=== PATIENT | male | born 1935 | race Caucasian/White ===

== ENCOUNTER 2017-10-27 10:49 | Observation (INO) ==
[2017-10-27 11:28] LABS: Basophils % 0.6 %; Eosinophils # 0.1 K/mcL (0.0-0.6); Eosinophils % 2.5 %; Hematocrit 44.5 % (37.5-50.1); Hemoglobin 14.8 g/dL (12.9-16.9); Immature Granulocytes % 0.2 % (0-4); Lymphocytes # 1.2 K/mcL (0.6-4.6); Lymphocytes % 25.6 %; Mean Corpuscular HGB Conc 33.3 g/dL (31.6-35.5); Mean Corpuscular Hemoglobin 30.9 pg (28.0-33.3); Mean Corpuscular Volume 92.9 fL (83.0-100.0); Mean Platelet Volume 10.1 fL (9.4-12.4); Monocytes # 0.4 K/mcL (0.0-1.3); Monocytes % 7.7 %; Neutrophils # 3.1 K/mcL (1.6-8.9); Platelet Count 134 K/mcL (140-400); Red Blood Count 4.79 M/mcL (4.19-5.50); Red Cell Distribution Width 13.6 % (11.5-14.5); Segmented Neutrophils % 63.4 %
--- NOTE | 2017-10-27 11:35 | Emergency Department Note ---
Disposition Clinical Impression: Chest pain Disposition: Admitted As Inpatient Condition: Fair Time of Disposition: 13:17 Chest Pain HPI - General Chief Complaint: ED Chest Pain Stated Complaint: chest pain Time Seen by Provider: 10/27/17 10:56 Source: patient, EMS Limitations: language barrier Vital Signs Reviewed: Yes Nursing Notes Reviewed: Yes - History of Present Illness HPI Narrative: History of CABG in 2010 presents with chest pain which is a pressure feeling and began while he was eating breakfast this morning at home between 845 and 9: 00 and the symptoms are constant but significantly improved and only about 10% of the discomfort that he had initially. Did have diaphoresis and nausea no vomiting. Did radiate to the upper arms but that only lasted for about 5 minutes. No pleuritic aspect. No pain or swelling of the lower extremities. Last cardiac catheterization was in 2010. 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 Social history: No smoking or alcohol. Is here with his . Family history: Positive for heart disease Severity scale (1-10): 0 - Related Data Home Medications Medication Instructions Recorded Confirmed Aspirin [Lo-Dose Aspirin EC] 81 mg PO DAILY 10/27/17 10/27/17 Atorvastatin [Lipitor] 10 mg PO DAILY 10/27/17 10/27/17 Fish Oil/Dha/Epa [Fish Oil 1,200 1 cap PO DAILY 10/27/17 10/27/17 mg Fish Oil] Losartan [Cozaar] 25 mg PO HS 10/27/17 10/27/17 Multivitamin [One Daily Essential] 1 tab PO DAILY 10/27/17 10/27/17 Nitroglycerin [Nitroglycerin] 0.4 mg SL Q5M PRN 10/27/17 10/27/17 Tamsulosin [Flomax] 0.4 mg PO DAILY 10/27/17 10/27/17 Allergies Allergy/AdvReac Type Severity Reaction Status Date / Time No Known Allergies Allergy Verified 10/27/17 12:40 Review of Systems: Constitutional: No fever Vision: No blurred vision ENT: No new rhinorrhea Respiratory: No cough Allergic: No allergies : No blood in urine GI: No blood in stool Hematologic: No bruising Dermatologic: No skin rash Musculoskeletal: No pain in the extremities Neuro: No numbness of the extremities Chest Pain PMH - Past Medical History Medical history: Reports: coronary artery disease, hyperlipidemia, hypertension , other Psychiatric history: Reports: no psych history - Social History Smoking Status: Never smoker Alcohol use: Reports: none Drug use: Reports: none Physical Exam CONSTITUTIONAL: Well-appearing; well-nourished; A&O X 3, in no apparent distress HEAD: Normocephalic; atraumatic EYES: PERRL, no scleral icterus NOSE: The nose is normal in appearance without rhinorrhea NECK: No JVD or distended neck veins RESP: Normal chest excursion with respiration; breath sounds clear and equal bilaterally; no wheezes, rhonchi, or rales CARD: Regular rhythm, without murmurs, rub or gallop ABD: Non-distended; non-tender, soft, without rigidity, rebound or guarding,no pulsatile mass CHEST: No pain with palpation, does have a well-healed midline sternotomy scar SKIN: Normal for age and race; warm and dry without diaphoresis ; no apparent lesions EXTREMITIES: Pulses are 2 plus and equal times 4 extremities, no peripheral edema or calf muscle pain - General Limitations: language barrier General appearance: alert, in no apparent distress Course Vital Signs Temperature 97.5 F L 10/27/17 10:54 Pulse Rate 74 10/27/17 10:54 Respiratory Rate 18 10/27/17 10:54 Blood Pressure 110/68 10/27/17 10:54 O2 Sat by Pulse Oximetry 99 10/27/17 10:54 Temperature 98.2 F 10/27/17 13:23 Pulse Rate 65 10/27/17 11:50 Respiratory Rate 18 10/27/17 13:23 Blood Pressure 104/68 10/27/17 13:23 O2 Sat by Pulse Oximetry 99 10/27/17 11:50 Oxygen Delivery Oxygen Delivery Room Air Chest Pain - MDM Narrative Medical decision making narrative: Patient did not get up from the table so does not know if this is worse with exertion and I did review his EKGs and the first one was done at 10:58 AM showing normal sinus rhythm with a rate of 69 which does have isolated T-wave inversion in lead aVL and this is new compared to previous EKG from 2013. I did repeat the EKG at 11:26 AM which showed continued aVL T-wave inversion and is also normal sinus rhythm both out ST changes/significant ST changes. The patient does have Q waves on both of these EKGs inferiorly. The patient does have a cardiac workup in progress. He did take aspirin this morning 81 mg. Patient will receive 1 inch of nitroglycerin paste and be watched closely and likely admitted to the hospital. Chest x-ray is also pending. 1137 I did review the patient's test results including a negative troponin. Patient 's symptoms are concerning and for that reason will be admitted to the hospital. This was discussed with the hospitalist Dr. Barragan who except the patient for admission. He is pain-free now. 1316 I did speak with Dr. Dennis Miranda in [place] who recommends the patient stay here and if this test comes back negative then he will be happy to see the patient in the office either this coming week or possibly the week after. I will recommend the patient that he call the office today or tomorrow to make an appointment. The patient will be admitted. He is pain-free at the present time. The patient is comfortable with this approach. 1341 - Medical Records Medical records reviewed: Yes I reviewed the patient's medical records. - Lab Data Lab results reviewed: Yes I reviewed the patient's lab results. Result diagrams: 10/27/17 11:18 10/27/17 12:03 Lab Results 10/27/17 10/27/17 10/27/17 Range/Units 11:18 11:18 11:18 WBC 4.8 (4.3-11.1) K/mcL RBC 4.79 (4.19-5.50) M/mcL Hgb 14.8 (12.9-16.9) g/dL Hct 44.5 (37.5-50.1) % MCV 92.9 (83.0-100.0) fL MCH 30.9 (28.0-33.3) pg MCHC 33.3 (31.6-35.5) g/dL RDW 13.6 (11.5-14.5) % Plt Count 134 L (140-400) K/mcL MPV 10.1 (9.4-12.4) fL Immature Gran % 0.2 (0-4) % Seg Neutrophils % 63.4 % Lymphocytes % 25.6 % Monocytes % 7.7 % Eosinophils % 2.5 % Basophils % 0.6 % Neutrophils # 3.1 (1.6-8.9) K/mcL Lymphocytes # 1.2 (0.6-4.6) K/mcL Monocytes # 0.4 (0.0-1.3) K/mcL Eosinophils # 0.1 (0.0-0.6) K/mcL Basophils # 0.0 (0.0-0.2) K/mcL Sodium (136-145) mEq/L Potassium (3.5-5.1) mEq/L Chloride (98-107) mEq/L Carbon Dioxide (23-29) mEq/L BUN (8-23) mg/dL Creatinine (0.70-1.30) mg/dL Est GFR ( Amer) (> 60) Est GFR (Non-Af Amer) (> 60) BUN/Creatinine Ratio (6-26) Glucose (70-105) mg/dL Calculated Osmolality (280-300) Calcium (8.6-10.3) mg/dL Troponin I < 0.03 (< 0.04) ng/mL Specimen Rejected Hemolyzed 10/27/17 Range/Units 12:03 WBC (4.3-11.1) K/mcL RBC (4.19-5.50) M/mcL Hgb (12.9-16.9) g/dL Hct (37.5-50.1) % MCV (83.0-100.0) fL MCH (28.0-33.3) pg MCHC (31.6-35.5) g/dL RDW (11.5-14.5) % Plt Count (140-400) K/mcL MPV (9.4-12.4) fL Immature Gran % (0-4) % Seg Neutrophils % % Lymphocytes % % Monocytes % % Eosinophils % % Basophils % % Neutrophils # (1.6-8.9) K/mcL Lymphocytes # (0.6-4.6) K/mcL Monocytes # (0.0-1.3) K/mcL Eosinophils # (0.0-0.6) K/mcL Basophils # (0.0-0.2) K/mcL Sodium 140 (136-145) mEq/L Potassium 4.5 (3.5-5.1) mEq/L Chloride 108 H (98-107) mEq/L Carbon Dioxide 29 (23-29) mEq/L BUN 16 (8-23) mg/dL Creatinine 1.22 (0.70-1.30) mg/dL Est GFR ( Amer) > 60 (> 60) Est GFR (Non-Af Amer) 57 L (> 60) BUN/Creatinine Ratio 13 (6-26) Glucose 233 H (70-105) mg/dL Calculated Osmolality 299 (280-300) Calcium 9.0 (8.6-10.3) mg/dL Troponin I (< 0.04) ng/mL Specimen Rejected - Radiology Data Radiology results reviewed: Yes I reviewed the patient's radiology results.
[2017-10-27 12:31] LABS: BUN/Creatinine Ratio 13 (6-26); Blood Urea Nitrogen 16 mg/dL (8-23); Carbon Dioxide 29 mEq/L (23-29); Chloride 108 mEq/L (98-107); Glucose 233 mg/dL (70-105); Osmolality,Calculated 299 (280-300); Potassium 4.5 mEq/L (3.5-5.1); Sodium 140 mEq/L (136-145); eGFR For African Americans > 60 (> 60); eGFR For Non-African Americans 57 (> 60)
--- NOTE | 2017-10-27 16:11 | Event Note ---
Date of Encounter: 10/27/17 Time of Encounter: 16:10 Patient seen and examined with nurse practitioner. Unstable angina. Electrocardiogram shows no ST segment shifts. He has old q waves in the inferior leads unchanged from previous. Initial troponin normal. Trend Troponin. Continue anti-ischemic medications. Appreciate cardiology input
[2017-10-27] MEDS ORDERED: Ondansetron 4 MG/2 ML VIAL IVP PRN (16:49)
[2017-10-27] MEDS ORDERED: Acetaminophen 325 MG TABLET PO PRN (16:49)
[2017-10-27] MEDS ORDERED: Naloxone 0.4 MG/ML INJ IVP PRN (16:49)
[2017-10-27] MEDS ORDERED: Nitroglycerin 0.4 MG TAB.SUBL SL PRN (16:53)
--- NOTE | 2017-10-27 17:08 | Internal Med History&Physical ---
Date of Encounter: 10/27/17 Time of Encounter: 16:59 Assessment and Plan (1) Chest pain Current visit: Yes Status: Acute Patient had midsternal chest pressure at rest radiating to arms with associated symptoms of diaphoresis and nausea. He has a hernia history with CABG as well as stent placement. First troponin is negative which we will continue to trend Continuous cardiac monitoring Continue with aspirin and statin Nitrates as needed for chest pain We will consult cardiology-spoke with Dr. Gibson We will check cardiac echo Qualifiers: Chest pain type: unspecified Qualified Code(s): R07.9 - Chest pain, unspecified (2) HTN (hypertension) Current visit: Yes Status: Acute 1 present patient appears to be a little hypotensive with systolic 90s to 100s we will hold losartan tonight and may reduce the dose in the morning Qualifiers: Hypertension type: essential hypertension Qualified Code(s): I10 - Essential (primary) hypertension (3) DVT prophylaxis Current visit: Yes Status: Acute Lovenox [facility] Internal Medicine - H&P: HPI Chief complaint: CP Admitted From: Emergency Dept Plans for Post Hospital Care: Home History of present illness: Mr. 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 Miranda, according to the patient this morning while he was eating breakfast he began to experience significant chest pressure midsternal described as a heaviness. He did have some associated symptoms of diaphoresis and nausea the heaviness did radiate to his upper arms that only lasted a few minutes. He did take 2 nitroglycerin and a aspirin with some relief. He did call the squad he said by the time he arrived at the emergency department the pain had resolved. According to ER records blood work was obtained which was initially unremarkable chest x-ray was clear EKG with no ST-T wave abnormalities. 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 Advised to observe patient here and if everything is negative to have him follow up when his office. Patient has been admitted for further workup and evaluation. Presently patient denies any chest pain and he is hemodynamically stable this time Past Med Surg Social Fam HX - Past Medical History Medical history: coronary artery disease, hyperlipidemia, hypertension, other Psychiatric history: no psych history - Social History Smoking Status: Former smoker Smokeless Tobacco Status: No Alcohol use: occasionally Drug use: none - Family History Father Living Status: Hx Family Cardiac Disorders: Yes (Heart disease) Mother Living Status: Hx Family Cardiac Disorders: Yes (Heart disease) Internal Medicine - H&P: Meds Aspirin [Lo-Dose Aspirin EC] 81 mg PO DAILY 10/27/17 [History] Atorvastatin [Lipitor] 10 mg PO DAILY 10/27/17 [History] Fish Oil/Dha/Epa [Fish Oil 1,200 mg Fish Oil] 1 cap PO DAILY 10/27/17 [History] Losartan [Cozaar] 25 mg PO HS 10/27/17 [History] Multivitamin [One Daily Essential] 1 tab PO DAILY 10/27/17 [History] Nitroglycerin [Nitroglycerin] 0.4 mg SL Q5M PRN 10/27/17 [History] Tamsulosin [Flomax] 0.4 mg PO DAILY 10/27/17 [History] 3 Allergy/AdvReac Type Severity Reaction Status Date / Time No Known Allergies Allergy Verified 10/27/17 12:40 All Systems PM: A 10-system review of systems was performed and is negative for pertinent findings except as documented above in the HPI. - Constitutional Constitutional: no chills, no fever(s), no night sweats - EENT Eyes: no change in vision, no discharge, no pain, no photophobia Ears: no ear discharge, no ear pain, no tinnitus Nose, mouth and throat: no dysphagia, no nasal discharge, no neck pain, no sore throat - Cardiovascular Cardiovascular ROS IM: chest pain, palpitations - Respiratory Respiratory: no cough, no dyspnea, no wheezing, no excessive phlegm production - Gastrointestinal Gastrointestinal: no abdominal pain, no diarrhea, no hematemesis, no hematochezia, no melena, no nausea, no vomiting - Musculoskeletal Musculoskeletal ROS IM: no numbness, no tingling - Integumentary Integumentary IM: no rash, no unusual bruising - Neurological Neurological ROS: no confusion, no convulsions, no focal weakness, no numbness, no tingling, no tremor(s) - Hematologic/Lymphatic Hematologic/Lymphatic: no easy bruising - Constitutional Vitals: Temp Pulse Resp BP Pulse Ox 97.9 F 62 18 112/72 97 10/27/17 15:02 10/27/17 15:02 10/27/17 15:02 10/27/17 15:02 10/27/17 15:02 General appearance: Present: A&O X 3 - Head Head exam: Present: atraumatic, normocephalic - Eye Eye exam: Present: PERRL, conjuntiva pink, sclera anicteric Pupils: Present: PERRL - Neck Neck exam general surgery: Present: supple, trachea midline. Absent: lymphadenopathy - Respiratory Respiratory exam: Present: CTAB. Absent: accessory muscle use, rales, rhonchi, wheezes - Cardiovascular Cardiovascular exam: Present: RRR, +S1, +S2. Absent: diastolic murmur, gallop, rubs, systolic murmur - GI/Abdominal GI/Abdominal exam: Present: normal bowel sounds, soft, no peritoneal signs. Absent: distended, tenderness - Extremities Exam Extremities exam: Present: warm, radial pulses palpable and symmetrical. Absent : calf tenderness, cyanotic, pedal edema - Neurological Exam Neurological exam: Present: CN II-XII intact, oriented X3, no focal deficits. Absent: pronater drift, facial droop, speech deficit - Skin Skin exam: Present: dry, intact Internal Med - H&P Results - Labs CBC & Chem 7: 10/27/17 11:18 10/27/17 12:03 - EKG Data EKG shows normal: sinus rhythm - EKG Data Prior EKG available for review: yes When compared to previous EKG: there is no significant change - Diagnostic Studies Other Images Additional comments: Chest X-Ray 10/27/17 11:15 IMPRESSION: No radiographic evidence of acute cardiopulmonary process. D/ / Romaine Mark MD / Romaine Mark MD Interpreting Provider: Romaine Mark MD
[2017-10-28 06:42] LABS: Basophils % 0.6 %; Eosinophils # 0.2 K/mcL (0.0-0.6); Eosinophils % 2.8 %; Hematocrit 42.7 % (37.5-50.1); Hemoglobin 14.6 g/dL (12.9-16.9); Immature Granulocytes % 0.1 % (0-4); Immature Platelets 2.5 % (1.1-6.1); Lymphocytes # 2.2 K/mcL (0.6-4.6); Lymphocytes % 32.2 %; Mean Corpuscular HGB Conc 34.2 g/dL (31.6-35.5); Mean Corpuscular Hemoglobin 31.3 pg (28.0-33.3); Mean Corpuscular Volume 91.4 fL (83.0-100.0); Mean Platelet Volume 10.1 fL (9.4-12.4); Monocytes # 0.7 K/mcL (0.0-1.3); Monocytes % 10.1 %; Neutrophils # 3.7 K/mcL (1.6-8.9); Platelet Count 155 K/mcL (140-400); Red Blood Count 4.67 M/mcL (4.19-5.50); Red Cell Distribution Width 13.8 % (11.5-14.5); Segmented Neutrophils % 54.2 %
[2017-10-28 07:24] LABS: BUN/Creatinine Ratio 19 (6-26); Blood Urea Nitrogen 18 mg/dL (8-23); Calcium 8.9 mg/dL (8.6-10.3); Carbon Dioxide 27 mEq/L (23-29); Chloride 109 mEq/L (98-107); Chol/HDL Ratio 4.1 (0-4.9); Cholesterol 140 mg/dL (< 200); Glucose 99 mg/dL (70-105); HDL Cholesterol 34 mg/dL (40-59); LDL Cholesterol,Calculated 82 mg/dL (0-99); Magnesium 1.9 mg/dL (1.6-2.6); Osmolality,Calculated 292 (280-300); Potassium 4.1 mEq/L (3.5-5.1); Sodium 140 mEq/L (136-145); Triglycerides 121 mg/dL (< 150); eGFR For African Americans > 60 (> 60); eGFR For Non-African Americans > 60 (> 60)
[2017-10-28] MEDS ORDERED: Regadenoson 0.4 MG/5 ML SYRINGE IVP ONE (08:50)
[2017-10-28] MEDS ORDERED: Aspirin Enteric Coated 81 MG Tablet PO SCH (09:00)
[2017-10-28] MEDS ORDERED: Multivit/Ca/Min/Fe/FA 1 TAB TABLET PO SCH (09:00)
[2017-10-28 12:15] VITALS: BP 173/79
--- NOTE | 2017-10-28 14:52 | Discharge Summary ---
Date of Encounter: 10/28/17 Time of Encounter: 08:35 - Discharge Diagnosis (1) Chest pain Priority: Primary Status: Acute Comments: pt reports that he has had fluttering in his chest since he had an increased amount of caffeine 3 days ago. He had sudden onset mid sternal chest pressure with radiation to bilateral arms beginning at 0930 yesterday a.m. while sitting at the table eating breakfast. Pt took 3 SL Ntg and became hypotensive, diaphoretic, and nauseated. Patient has significant cardiac history dating back to age 19 when he was diagnosed with a questionable dysrhythmia. In 1993 and angioplasty, 2010 he had 4 vessel CABG. Troponins were negative 3. Lipid panels within normal limits. Echo: EF 55-60% , mild LV DT in no significant valvular dysfunction. Stress test revealed a gated EF of 67%, negative for ischemia or infarct. Chest x-ray is negative. His vitals are stable and within normal limits. Patient is very active and walks daily. He eats a very healthy diet and was reluctant to stay in the hospital due to the not healthy food that is served. Patient will continue fish oil, Lipitor, aspirin, Cozaar. Patient has nitroglycerin to use when necessary. Patient has follow-up appointment with cardiology next week. He is pain-free. Qualifiers: Chest pain type: unspecified Qualified Code(s): R07.9 - Chest pain, unspecified (2) HTN (hypertension) Priority: Secondary Status: Chronic Comments: Chronic. Continue home medications. Qualifiers: Hypertension type: essential hypertension Qualified Code(s): I10 - Essential (primary) hypertension (3) DVT prophylaxis Priority: Secondary Status: Acute Comments: Patient has been ambulatory. - Discharge Medications Home Medications: Aspirin [Lo-Dose Aspirin EC] 81 mg PO DAILY 10/27/17 [History] Atorvastatin [Lipitor] 10 mg PO DAILY 10/27/17 [History] Fish Oil/Dha/Epa [Fish Oil 1,200 mg Fish Oil] 1 cap PO DAILY 10/27/17 [History] Losartan [Cozaar] 25 mg PO HS 10/27/17 [History] Multivitamin [One Daily Essential] 1 tab PO DAILY 10/27/17 [History] Nitroglycerin 0.4 mg SL Q5M PRN 10/27/17 [History] Tamsulosin [Flomax] 0.4 mg PO DAILY 10/27/17 [History] Allergies/Adverse Reactions: 3 Allergy/AdvReac Type Severity Reaction Status Date / Time No Known Allergies Allergy Verified 10/27/17 12:40 Procedures/tests Complete & Pending: Procedures Performed prior 72 hours Category Date Time Status NM micheal perf SPECT multi [NM] Routine Exams 10/28/17 08:44 Taken EV echocardiogram Routine Y 10/27/17 16:53 Completed SP pharm nuclear stress Routine Y 10/28/17 08:37 Completed Date of admission: 10/27/17 13:12 Primary care physician: Nirali Ortiz Discharging clinician: Barbie Grullon Anticipated date of discharge: 10/28/17 - Patient Status Disposition: Home, Self-Care Condition: Good Functional capacity at discharge: independent ambulation Overall status at discharge: patient is back to baseline - Discharge Instructions Follow Up With: Nirali Ortiz DO [Primary Care Provider] - Additional Instructions: Please follow up with your estimation manager as scheduled. Please return to the ER if your symtpoms return or worsen. Take your normal medications as tolerated. Return to your normal activities and diet as tolerated. - Diet and Activity Activity: increase activity as tolerated Diet: advance to your usual diet, low fat, low cholesterol, low salt diet Hospital course: Mr. Alexandra is a 82 year old male with medical history significant for four- vessel CABG, angioplasty, hypertension, hyperlipidemia. Presented with sudden onset midsternal chest pain with radiation of bilateral arms while seated at the breakfast table. He reports increased caffeine intake 2 days prior and intermittent palpitations for 2 days. Patient reports that he took 3 nitroglycerin at home and became hypotensive, diaphoretic, nauseated. Came to the emergency room and was admitted for evaluation. Stress test negative echocardiogram with preserved ejection fraction no significant valvular dysfunction. Troponins were negative, chest x-ray was negative. Vitals are stable patient will follow-up with his estimation manager next week as scheduled. He is stable appropriate for discharge. - Time Spent with Patient Total time spent providing and/or coordinating discharge services: Less than 30 minutes - Constitutional Vitals: Temp Pulse Resp BP Pulse Ox 98.2 F 56 16 173/79 98 10/28/17 12:14 10/28/17 12:14 10/28/17 12:14 10/28/17 12:14 10/28/17 12:14 General appearance: Present: A&O X 3, pleasant, no acute distress, answers questions appropriately - Head Head exam: Present: atraumatic, normal inspection, normocephalic - Eye Eye exam: Present: normal appearance, conjuntiva pink, sclera anicteric - Neck Neck exam general surgery: Present: supple, trachea midline. Absent: lymphadenopathy - Respiratory Respiratory exam: Present: CTAB. Absent: accessory muscle use, rales, respiratory distress, rhonchi, wheezes - Cardiovascular Cardiovascular exam: Present: RRR, +S1, +S2. Absent: bradycardia, diastolic murmur, gallop, rubs, systolic murmur, tachycardia - GI/Abdominal GI/Abdominal exam: Present: normal bowel sounds, soft, no peritoneal signs. Absent: distended, hepatomegaly, tenderness - Extremities Exam Extremities exam: Present: normal capillary refill, normal inspection, warm, radial pulses palpable and symmetrical. Absent: calf tenderness, cyanotic, pedal edema, tenderness - Neurological Exam Neurological exam: Present: alert, oriented X3, no focal deficits. Absent: facial droop, speech deficit - Skin Skin exam: Present: dry, intact, normal color, warm. Absent: petechiae
--- NOTE | 2017-10-29 09:26 | Electrocardiograph Report ---
[place] [id number] Test Date: 2017-10-27 Pat Name: Reynaldo Alexandra Department: 103 Room: 3B Gender: M Title I Assistant: SHAHEED : 1935 Requested By: Alexander Fernandes Order Number: [id number] Reading MD: Riki Gibson DO Measurements Intervals [place] Rate: 70 P: 47 GA: 180 QRS: 40 QRSD: 110 T: 81 QT: 387 QTc: 408 Interpretive Statements SINUS RHYTHM INFERIOR MYOCARDIAL INFARCTION, OF INDETERMINATE AGE NONSPECIFIC ST-T CHANGES Electronically Signed On 10-29-2017 9:25:23 EST by Riki Gibson DO
== END 2017-10-28 15:35 | disposition home or self-care (01) ==
LOC: EMEROO 10:49 → 3BNU 10:49
PROVIDERS: ADMIT Hospitalist; ATTEND Registered Nurse

== ENCOUNTER 2019-05-06 13:59 | Observation (INO) ==
--- NOTE | 2019-05-06 14:05 | Emergency Department Note ---
Disposition Clinical Impression: Chest pain Qualifiers: Chest pain type: unspecified Qualified Code(s): R07.9 - Chest pain, unspecified Disposition: Admitted As Inpatient Condition: Undetermined Time of Disposition: 16:02 General Adult HPI - General Stated complaint: CP Time Seen by Provider: 05/06/19 14:04 Source: patient, EMS Mode of arrival: EMS Limitations: no limitations Nursing Notes Reviewed: Yes Vital Signs Reviewed: Yes - History of Present Illness HPI Narrative: Patient is an 84-year-old male with a past medical history including coronary artery disease status post CABG in 2009, hypertension, hyperlipidemia, presenting with a chief complaint of left-sided chest pain. The patient states he was sitting and reading a book when he suddenly developed left-sided chest pain radiating into his left shoulder. Pain was a sharp pressure-like sensati on. He had associated nausea but no vomiting. He states he took 2 aspirin, 2 nitroglycerin. EMS was called. Upon arrival, they found him diaphoretic. He states pain resolved after an hour after the second nitroglycerin. He states this felt similar to his prior chest pain with his prior heart attack. When he arrived to the emergency department, he was chest pain-free. - Related Data Home Medications Medication Instructions Recorded Confirmed Aspirin [Lo-Dose Aspirin EC] 81 mg PO DAILY 10/27/17 05/06/19 Atorvastatin [Lipitor] 10 mg PO DAILY 10/27/17 05/06/19 Fish Oil/Dha/Epa [Fish Oil 1,200 1 cap PO DAILY 10/27/17 05/06/19 mg Fish Oil] Losartan [Cozaar] 50 mg PO HS 10/27/17 05/06/19 Multivitamin [One Daily Essential] 1 tab PO DAILY 10/27/17 05/06/19 Nitroglycerin 0.4 mg SL Q5M PRN 10/27/17 05/06/19 Tamsulosin [Flomax] 0.4 mg PO DAILY 10/27/17 05/06/19 Caffeine [No Doz] 200 mg PO DAILY 05/06/19 05/06/19 Lysine HCl [l-Lysine] 1,000 mg PO DAILY 05/06/19 05/06/19 [place]-3/Dha/Epa/Fish Oil [[place] 3 1 each PO DAILY 05/06/19 05/06/19 500 Softgel] Vit D3/Folic Acid/B2/B6/B12 1 each PO DAILY 05/06/19 05/06/19 [Folgard Tablet] Allergies Allergy/AdvReac Type Severity Reaction Status Date / Time No Known Allergies Allergy Verified 10/27/17 12:40 All systems ED: reviewed and negative except as stated. Review of Systems: As Per HPI Constitutional: Denies: fever, chills Cardiovascular: Reports: chest pain. Denies: edema Respiratory: Reports: dyspnea. Denies: cough Gastrointestinal: Reports: nausea. Denies: abdominal pain, vomiting, diarrhea Neurological: Denies: headache, weakness, numbness Past Medical History - Past Medical History Attestation: Yes The following information was validated with the patient. Source: patient Medical history: Reports: coronary artery disease, hyperlipidemia, hypertension, other Psychiatric history: Reports: no psych history - Social History Smoking Status: Former smoker Smokeless Tobacco Status: No Alcohol use: Reports: occasionally Drug use: Reports: none Physical Exam - General Limitations: no limitations General appearance: alert, in no apparent distress - Head Head exam: atraumatic, normocephalic, normal inspection - Eye Eye exam: Present: normal appearance, PERRL, EOMI - ENT ENT exam: normal exam, normal oropharynx, mucous membranes moist - Neck Neck exam: Present: normal inspection, trachea midline - Chest Chest inspection: Present: normal inspection, symmetric chest wall rise - Respiratory Respiratory exam: Present: normal lung sounds bilaterally. Absent: respiratory distress, wheezes - Cardiovascular Cardiovascular exam: Present: regular rate, normal rhythm, normal heart sounds, other (bilateral radial pulses and bilateral dorsalis pedis pulses equal) - Abdominal Exam Abdominal exam: Present: soft, Non-Tender. Absent: distention - Extremities Exam Extremities exam: Present: normal capillary refill. Absent: pedal edema, calf tenderness - Neurological Exam Neurological exam: Present: alert, oriented X3 - Psychiatric Psychiatric exam: Present: normal affect, normal mood - Skin Skin exam: Present: warm, dry. Absent: diaphoresis, pallor Course Vital Signs Temperature 98.3 F 05/06/19 14:06 Pulse Rate 55 05/06/19 14:06 Respiratory Rate 14 05/06/19 14:06 Blood Pressure 104/65 05/06/19 14:06 O2 Sat by Pulse Oximetry 98 05/06/19 14:06 Temperature 98.3 F 05/06/19 14:06 Pulse Rate 52 05/06/19 17:59 Respiratory Rate 16 05/06/19 17:59 Blood Pressure 140/73 05/06/19 17:59 O2 Sat by Pulse Oximetry 96 05/06/19 17:59 Oxygen Delivery Oxygen Delivery Room Air Medical Decision Making - MDM Narrative Medical decision making narrative: Patient has a significant cardiac history. Chest pain associated with diaphoresis and RONALD at home, responded to 2 nitroglycerin. We will obtain cardiac workup. He is chest pain-free at this time. Vital stable. EKG shows no acute ischemic changes. 15:45 Patient remains chest pain-free. Troponin is less than 0.03. Lab work otherwise within normal limits. Patient will be admitted for chest pain workup. 16:00 Discussed with hospice, Dr. Chapa, who accepts admission. Patient remains stable at this time. Remains chest pain-free. - Medical Records Medical records reviewed: Yes I reviewed the patient's medical records. - Lab Data Lab results reviewed: Yes I reviewed the patient's lab results. Result diagrams: 05/06/19 14:32 05/06/19 14:32 Lab Results 05/06/19 05/06/19 05/06/19 Range/Units 14:32 14:32 14:32 WBC 4.2 L (4.3-11.1) K/mcL RBC 4.59 (4.19-5.50) M/mcL Hgb 14.3 (12.9-16.9) g/dL Hct 42.6 (37.5-50.1) % MCV 92.8 (83.0-100.0) fL MCH 31.2 (28.0-33.3) pg MCHC 33.6 (31.6-35.5) g/dL RDW 13.2 (11.5-14.5) % Plt Count 133 L (140-400) K/mcL MPV 9.9 (9.4-12.4) fL Immature Gran % 0.0 (0-4) % Seg Neutrophils % 55.3 % Lymphocytes % 31.9 % Monocytes % 9.0 % Eosinophils % 3.1 % Basophils % 0.7 % Neutrophils # 2.3 (1.6-8.9) K/mcL Lymphocytes # 1.3 (0.6-4.6) K/mcL Monocytes # 0.4 (0.0-1.3) K/mcL Eosinophils # 0.1 (0.0-0.6) K/mcL Basophils # 0.0 (0.0-0.2) K/mcL PT 12.2 H (9.4-12.1) Seconds INR 1.1 APTT 28.6 (26.0-36.0) Seconds Sodium 139 (136-145) mEq/L Potassium 4.5 (3.5-5.1) mEq/L Chloride 103 (98-107) mEq/L Carbon Dioxide 29 (23-29) mEq/L BUN 17 (8-23) mg/dL Creatinine 1.22 (0.70-1.30) mg/dL Est GFR ( Amer) > 60 (> 60) Est GFR (Non-Af Amer) 57 L (> 60) BUN/Creatinine Ratio 14 (6-26) Glucose 173 H (70-105) mg/dL Calculated Osmolality 294 (280-300) Calcium 9.3 (8.6-10.3) mg/dL Troponin I < 0.03 (< 0.04) ng/mL - Radiology Data Radiology results reviewed: Yes I reviewed the patient's radiology results. Chest X-Ray 05/06/19 14:04 IMPRESSION: No acute process. D/ / Alexander Bauer MD / Alexander Bauer MD Interpreting Provider: Alexander Bauer MD Attestation Statement - Attestation Attestation: Patient was seen with resident physician. I reviewed the history, physical, assessment and plan, and agree with the findings. I also personally evaluated this patient and had [id number] time with this patient. 84-year-old male with a history of bypass surgery presents to the emergency department with chief complaint of chest pain. Patient is a history of same. Has a history of bypass surgery. He says the pain is on the left side of his chest radiating laterally. He says similar to his heart attack pain. He says is not as intense as when he had his initial symptoms. He took 4 aspirin and 2 nitroglycerin and his pain essentially resolved at home. He is brought in via EMS for evaluation and treatment. He was also diaphoretic and had some shortness of breath while he had the chest pain. Review of systems as above remainder negative. Physical exam vital signs are stable. ENT is unremarkable. Heart regular rhythm and rate. Lungs clear. Abdomen soft and nontender. Extremities unremarkable. Neurologically intact. Skin no rashes. Psych normal. ED course. Patient's EKG did not show any initial ischemic changes. We will do a full cardiac workup and admit the patient for additional evaluation and treatment. Initial cardiac workup did not reveal any significant abnormalities. Because of the patient's history he will require additional evaluation and treatment as an inpatient. We discussed the hospitalist service agreed to accept the patient. Hemodynamically he remained stable while in the emergency department. Agree with resident physician assessment and plan. ED procedures.I reviewed the patient's EKG as well as the resident physician interpretation and I agree with the findings.
[2019-05-06 14:50] LABS: Basophils % 0.7 %; Eosinophils # 0.1 K/mcL (0.0-0.6); Eosinophils % 3.1 %; Hematocrit 42.6 % (37.5-50.1); Hemoglobin 14.3 g/dL (12.9-16.9); Lymphocytes # 1.3 K/mcL (0.6-4.6); Lymphocytes % 31.9 %; Mean Corpuscular HGB Conc 33.6 g/dL (31.6-35.5); Mean Corpuscular Hemoglobin 31.2 pg (28.0-33.3); Mean Corpuscular Volume 92.8 fL (83.0-100.0); Mean Platelet Volume 9.9 fL (9.4-12.4); Monocytes # 0.4 K/mcL (0.0-1.3); Neutrophils # 2.3 K/mcL (1.6-8.9); Platelet Count 133 K/mcL (140-400); Red Blood Count 4.59 M/mcL (4.19-5.50); Red Cell Distribution Width 13.2 % (11.5-14.5); Segmented Neutrophils % 55.3 %; White Blood Count 4.2 K/mcL (4.3-11.1)
[2019-05-06 14:59] LABS: INR 1.1; Prothrombin Time 12.2 Seconds (9.4-12.1)
[2019-05-06 15:02] LABS: Activated Partial Thrombo Time 28.6 Seconds (26.0-36.0)
[2019-05-06 15:09] LABS: BUN/Creatinine Ratio 14 (6-26); Blood Urea Nitrogen 17 mg/dL (8-23); Calcium 9.3 mg/dL (8.6-10.3); Carbon Dioxide 29 mEq/L (23-29); Chloride 103 mEq/L (98-107); Glucose 173 mg/dL (70-105); Osmolality,Calculated 294 (280-300); Potassium 4.5 mEq/L (3.5-5.1); Sodium 139 mEq/L (136-145); eGFR For African Americans > 60 (> 60); eGFR For Non-African Americans 57 (> 60)
[2019-05-06 15:12] LABS: Troponin I < 0.03 ng/mL (< 0.04)
[2019-05-06] MEDS ORDERED: Naloxone 0.4 MG/ML INJ IVP PRN (16:41)
[2019-05-06] MEDS ORDERED: Nitroglycerin 0.4 MG TAB.SUBL SL PRN (16:44)
--- NOTE | 2019-05-06 16:51 | Internal Med History&Physical ---
Date of Encounter: 05/06/19 Time of Encounter: 16:48 Internal Medicine - H&P: HPI Chief complaint: left sided chest pain started today History of present illness: Mr. Alexandra is a 84 year old male with history of coronary artery disease status post CABG 2010 and angioplasty , history of hypertension , history of hyperlipidemia presented with left-sided chest pain started today while the patient was sitting and reading a book when he suddenly developed aching left-sided chest pain radiating into his left shoulder associated with sweating but no shortness of breath, patient described the pain as a sharp pressure-like sensation he took aspirin and nitroglycerin with partial relief however the patient states by the time he arrived to the ER the pain went away. The patient denies nausea vomiting or palpitation fever or chills. First set of troponin negative, chest x-ray nonacute, patient noted to have sinus bradycardia on telemetry. Past Med Surg Social Fam HX - Past Medical History Medical history: coronary artery disease, hyperlipidemia, hypertension, other Additional medical history: kidney stones, heart disease Psychiatric history: no psych history - Past Surgical History Additional surgical history: 4 vessel CABG, 4 stents, surgeries for bladder cancer removal. - Social History Smoking Status: Former smoker Smokeless Tobacco Status: No Alcohol use: occasionally Drug use: none - Family History Father Living Status: Hx Family Cardiac Disorders: Yes (Heart disease) Mother Living Status: Hx Family Cardiac Disorders: Yes (Heart disease) Internal Medicine - H&P: Meds Aspirin [Lo-Dose Aspirin EC] 81 mg PO DAILY 10/27/17 [History] Atorvastatin [Lipitor] 10 mg PO DAILY 10/27/17 [History] Fish Oil/Dha/Epa [Fish Oil 1,200 mg Fish Oil] 1 cap PO DAILY 10/27/17 [History] Losartan [Cozaar] 25 mg PO HS 10/27/17 [History] Multivitamin [One Daily Essential] 1 tab PO DAILY 10/27/17 [History] Nitroglycerin 0.4 mg SL Q5M PRN 10/27/17 [History] Tamsulosin [Flomax] 0.4 mg PO DAILY 10/27/17 [History] Allergy/AdvReac Type Severity Reaction Status Date / Time No Known Allergies Allergy Verified 10/27/17 12:40 All Systems PM: A 10-system review of systems was performed and is negative for pertinent findings except as documented above in the HPI. Review of systems: Review of system: Regarding cardiology respiratory GI endocrine hematology musculoskeletal all negative except for multiple was mentioned in the H&P - Constitutional Vitals: Temp Pulse Resp BP Pulse Ox 98.3 F 55 16 129/70 99 05/06/19 14:06 05/06/19 16:00 05/06/19 16:00 05/06/19 16:00 05/06/19 16:00 Exam: Physical examination: Gen.: Patient is alert and oriented, not in respiratory distress or pain HEENT: perrla , EOMI, no thyroid gland enlargement, no neck mass, supple neck Heart: S1 and S2 mary, normal sinus rhythm, no cardiac murmur no gallop rhythm Chest: Air entry equal bilaterally, clear chest, no wheezing, crackles or crepitation Abdomen: Soft nontender nondistended positive bowel sounds, no organomegaly Extremities: No pitting edema, peripheral pulses palpable, no cyanosis tenderness Neuro: Able to move all 4 limbs Internal Med - H&P Results - Labs CBC & Chem 7: 05/06/19 14:32 05/06/19 14:32 Labs: Short CBC 05/06/19 Range/Units 14:32 WBC 4.2 L (4.3-11.1) K/mcL Hgb 14.3 (12.9-16.9) g/dL Hct 42.6 (37.5-50.1) % Plt Count 133 L (140-400) K/mcL Neutrophils # 2.3 (1.6-8.9) K/mcL BMP 05/06/19 14:32 Sodium 139 Potassium 4.5 Chloride 103 Carbon Dioxide 29 BUN 17 Creatinine 1.22 Glucose 173 H Calcium 9.3 Cardiac Enzymes 05/06/19 Range/Units 14:32 Troponin I < 0.03 (< 0.04) ng/mL - Impressions ITS Impressions Chest X-Ray 05/06/19 14:04 IMPRESSION: No acute process. 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 Nitroglycerin sublingual prn for chest pain Patient has bradycardia, no indication of beta toni at current time Continue on ARB Qualifiers: Chest pain type: unspecified Qualified Code(s): R07.9 - Chest pain, unspecified (2) HTN (hypertension) Current Visit: No Status: Chronic Assessment and plan: Resume on home blood pressure medication including ARB Qualifiers: Hypertension type: unspecified Qualified Code(s): I10 - Essential (primary) hypertension - Time Spent With Patient Total time spent is greater than 50% in coordination of care (as documented) at patient's floor/unit and/or counseling patient:
[2019-05-06] MEDS ORDERED: 0.9 % Sodium Chloride 1,000 ML IVC SCH (17:15)
[2019-05-07 07:28] LABS: Basophils % 0.4 %; Eosinophils # 0.1 K/mcL (0.0-0.6); Eosinophils % 2.5 %; Hematocrit 41.7 % (37.5-50.1); Hemoglobin 14.2 g/dL (12.9-16.9); Immature Granulocytes % 0.2 % (0-4); Lymphocytes # 1.6 K/mcL (0.6-4.6); Lymphocytes % 30.3 %; Mean Corpuscular HGB Conc 34.1 g/dL (31.6-35.5); Mean Corpuscular Hemoglobin 31.2 pg (28.0-33.3); Mean Corpuscular Volume 91.6 fL (83.0-100.0); Mean Platelet Volume 10.1 fL (9.4-12.4); Monocytes # 0.6 K/mcL (0.0-1.3); Monocytes % 10.7 %; Neutrophils # 2.9 K/mcL (1.6-8.9); Platelet Count 125 K/mcL (140-400); Red Blood Count 4.55 M/mcL (4.19-5.50); Segmented Neutrophils % 55.9 %; White Blood Count 5.1 K/mcL (4.3-11.1)
[2019-05-07 07:46] LABS: Alanine Aminotransferase 14 Units/L (7-52); Albumin 3.5 g/dL (3.5-5.7); Albumin/Globulin Ratio 1.3 (1.1-2.2); Alkaline Phosphatase 65 Units/L (34-104); Aspartate Amino Transferase 15 Units/L (13-39); BUN/Creatinine Ratio 15 (6-26); Bilirubin,Total 1.1 mg/dL (0.3-1.0); Blood Urea Nitrogen 16 mg/dL (8-23); Calcium 8.9 mg/dL (8.6-10.3); Carbon Dioxide 27 mEq/L (23-29); Chloride 107 mEq/L (98-107); Globulin 2.6 g/dL (2.4-3.5); Glucose 94 mg/dL (70-105); Magnesium 1.9 mg/dL (1.6-2.6); Osmolality,Calculated 297 (280-300); Phosphorous 2.7 mg/dL (2.7-4.5); Potassium 3.8 mEq/L (3.5-5.1); Sodium 143 mEq/L (136-145); Total Protein 6.1 g/dL (6.4-8.9); eGFR For African Americans > 60 (> 60); eGFR For Non-African Americans > 60 (> 60)
[2019-05-07] MEDS ORDERED: Aspirin Enteric Coated 81 MG Tablet PO SCH (09:00)
[2019-05-07] MEDS ORDERED: Regadenoson 0.4 MG/5 ML SYRINGE IVP ONE (09:28)
--- NOTE | 2019-05-07 09:39 | Cardiology Consult Note ---
<Prosper Tobias R - Last Filed: 05/07/19 09:37> Date of Encounter: 05/07/19 Time of Encounter: 09:37 Assessment and Plan (1) Chest pain Status: Acute Presented with left-sided chest pain yesterday at rest radiating into his back associated with diaphoresis, nausea and dizziness. Took 2 nitro and ASA at home with improvement. This AM developed mild midsternal chest tightness rated 1/10. Troponins negative x 4. No acute ECG changes. TTE 10/27/17: LVEF 55-60%. Normal LV chamber size, wall thickness and function. Mild LVDD. Normal RV. No phtn. No significant valvular dysfunction. Nuclear stress test 10/28/17: Gated EF 67%. Perfusion imaging negative for ischemia or infarct. Given CAD hx and no ischemic evaluation in the past year, recommend pharmacologic nuclear stress test to evaluate. TTE pending as well. Will discuss and review with Dr. Jacobs. Qualifiers: Chest pain type: unspecified Qualified Code(s): R07.9 - Chest pain, unspecified (2) CAD (coronary artery disease) Status: Acute CAD s/p CABG 2010 and subsequent PCI. As above. Continue ASA, Statin. Not on BB d/t baseline bradycardia. Qualifiers: Coronary Disease-Associated Artery/Lesion type: [place] artery [place] vs. transplanted heart: [place] heart Associated angina: angina presence unspecified Qualified Code(s): I25.10 - Atherosclerotic heart disease of [place] coronary artery without angina pectoris Discussion w patient/family: The assessment and plan as outlined above was discussed with the patient and/or family members who expressed understanding and agreement. All questions were answered. Thank you for involving us in the care of your patient. Please call with any questions. I will discuss all the above with Dr. Jacobs and make changes as necessary. History of Present Illness Consult date: 05/07/19 Consult reason: chest pain Chief complaint: chest pain History of present illness: Mr. Alexandra is a 84 year old male with history of CAD s/p CABG 2010 and subsequent PCI, HTN, HLD presented with left-sided chest pain yesterday while the patient was sitting and reading a book when he suddenly developed aching left-sided chest pain radiating into his back associated with diaphoresis, nausea and dizziness. He took 2 nitro and ASA at home with improvement. Overall, episode lasted less than an hour. This AM he developed mild midsternal chest tightness rated 1/10. Troponins negative x 4. No acute ECG changes. Prior CV testing: TTE 10/27/17: LVEF 55-60%. Normal LV chamber size, wall thickness and function. Mild left ventricular diastolic dysfunction. Normal right ventricular structure and function. No evidence of pulmonary hypertension. No significant valvular dysfunction. Nuclear stress test 10/28/17: Gated EF 67%. Perfusion imaging negative for ischemia or infarct. Past Med Surg Social Fam HX - Past Medical History Medical history: cancer, coronary artery disease, hyperlipidemia, hypertension, other Additional medical history: basal cell carcinoma, prostate ca, bladder ca Psychiatric history: no psych history - Past Surgical History Additional surgical history: 4 vessel CABG, 4 stents, surgeries for bladder cancer removal. - Social History Smoking Status: Former smoker Smokeless Tobacco Status: No Alcohol use: rarely Drug use: none - Family History Father Living Status: Hx Family Cardiac Disorders: Yes (Heart disease) Mother Living Status: Hx Family Cardiac Disorders: Yes (Heart disease) Medications and Allergies Aspirin [Lo-Dose Aspirin EC] 81 mg PO DAILY 10/27/17 [History] Atorvastatin [Lipitor] 10 mg PO DAILY 10/27/17 [History] Fish Oil/Dha/Epa [Fish Oil 1,200 mg Fish Oil] 1 cap PO DAILY 10/27/17 [History] Losartan [Cozaar] 50 mg PO HS 10/27/17 [History] Multivitamin [One Daily Essential] 1 tab PO DAILY 10/27/17 [History] Nitroglycerin 0.4 mg SL Q5M PRN 10/27/17 [History] Tamsulosin [Flomax] 0.4 mg PO DAILY 10/27/17 [History] Caffeine [No Doz] 200 mg PO DAILY 05/06/19 [History] Lysine HCl [l-Lysine] 1,000 mg PO DAILY 05/06/19 [History] [place]-3/Dha/Epa/Fish Oil [[place] 3 500 Softgel] 1 each PO DAILY 05/06/19 [History] Vit D3/Folic Acid/B2/B6/B12 [Folgard Tablet] 1 each PO DAILY 05/06/19 [History] Allergy/AdvReac Type Severity Reaction Status Date / Time No Known Allergies Allergy Verified 10/27/17 12:40 All Systems Review: The remainder of the systems were reviewed and are negative - Cardiovascular Cardiovascular: as per HPI, chest pain at rest, diaphoresis, lightheadedness - Respiratory Respiratory: dyspnea Physical Examination Vital Signs, Last 4 Hours Temp Pulse Resp BP Pulse Ox 05/07/19 08:15 97.7 F 52 15 158/81 94 Vital Signs Temp Pulse Resp BP Pulse Ox 05/07/19 08:15 97.7 F 52 15 158/81 94 05/07/19 02:52 97.9 F 60 16 122/77 95 05/06/19 22:46 97.6 F 51 16 138/79 05/06/19 19:37 98.5 F 52 16 154/83 95 05/06/19 17:59 52 16 140/73 96 05/06/19 16:00 55 16 129/70 99 05/06/19 15:13 53 17 108/65 97 05/06/19 14:21 57 18 104/65 99 05/06/19 14:06 98.3 F 55 14 104/65 98 Intake and Output 05/06/19 05/07/19 05/07/19 23:59 07:59 15:59 Output Total 550 / 550 Balance -550 / -550 Output: Urine 550 / 550 Other: # Voids 2 # Bowel Movements 1 Weight 71 kg Blood Glucose* 93 103 Patient Weight 05/07/19 23:59 Weight 71 kg General: Conversant, No Apparent Distress HEENT: Atraumatic, Normocephaly, Mucus Membranes Moist Neck: No JVD, Normal carotid pulses Cardiac: Reg Rate and Rhythm, Normal S1 and S2, No Murmur Lungs: Normal Breath Sounds, No Wheeze, Rales, Rhonchi Neuro: Alert and responsive, No focal deficits noted Abdomen: Soft, Non-Tender Skin: No rashes noted on visualized skin Musculoskeletal: No Chest Wall Tenderness Extremities: No Clubbing, No Cyanosis, No Edema, Normal Pulses Results 05/07/19 06:48 05/07/19 06:48 Lab Results 05/06/19 05/06/19 05/06/19 14:32 14:32 14:32 WBC 4.2 L Hgb 14.3 Hct 42.6 Plt Count 133 L INR 1.1 APTT 28.6 D-Dimer Sodium 139 Potassium 4.5 Chloride 103 Carbon Dioxide 29 BUN 17 Creatinine 1.22 Glucose 173 H Calcium 9.3 Magnesium Total Bilirubin AST ALT Alkaline Phosphatase Troponin I < 0.03 05/06/19 05/06/19 05/06/19 18:24 18:24 22:44 WBC Hgb Hct Plt Count INR APTT D-Dimer 329 Sodium Potassium Chloride Carbon Dioxide BUN Creatinine Glucose Calcium Magnesium Total Bilirubin AST ALT Alkaline Phosphatase Troponin I < 0.03 < 0.03 05/07/19 05/07/19 05/07/19 06:48 06:48 06:48 WBC 5.1 Hgb 14.2 Hct 41.7 Plt Count 125 L INR APTT D-Dimer Sodium 143 Potassium 3.8 Chloride 107 Carbon Dioxide 27 BUN 16 Creatinine 1.07 Glucose 94 Calcium 8.9 Magnesium 1.9 Total Bilirubin 1.1 H AST 15 ALT 14 Alkaline Phosphatase 65 Troponin I < 0.03 Short CBC 05/07/19 05/06/19 Range/Units 06:48 14:32 WBC 5.1 4.2 L (4.3-11.1) K/mcL Hgb 14.2 14.3 (12.9-16.9) g/dL Hct 41.7 42.6 (37.5-50.1) % Plt Count 125 L 133 L (140-400) K/mcL Neutrophils # 2.9 2.3 (1.6-8.9) K/mcL BMP 05/07/19 05/06/19 Range/Units 06:48 14:32 Sodium 143 139 (136-145) mEq/L Potassium 3.8 4.5 (3.5-5.1) mEq/L Chloride 107 103 (98-107) mEq/L Carbon Dioxide 27 29 (23-29) mEq/L BUN 16 17 (8-23) mg/dL Creatinine 1.07 1.22 (0.70-1.30) mg/dL Glucose 94 173 H (70-105) mg/dL Calcium 8.9 9.3 (8.6-10.3) mg/dL Cardiac Enzymes 05/07/19 05/06/19 05/06/19 Range/Units 06:48 22:44 18:24 Troponin I < 0.03 < 0.03 < 0.03 (< 0.04) ng/mL 05/06/19 Range/Units 14:32 Troponin I < 0.03 (< 0.04) ng/mL Liver Function 05/07/19 Range/Units 06:48 Total Bilirubin 1.1 H (0.3-1.0) mg/dL AST 15 (13-39) Units/L ALT 14 (7-52) Units/L Alkaline Phosphatase 65 (34-104) Units/L Albumin 3.5 (3.5-5.7) g/dL Impressions Chest X-Ray 05/06/19 14:04 IMPRESSION: No acute process. D/ / Alexander Bauer MD / Alexander Bauer MD Interpreting Provider: Alexander Bauer MD Active Medications Aspirin (Aspirin Ec) 81 mg PO DAILY [facility] Stop: 11/06/19 09:01 Last Admin: 05/07/19 08:38 Dose: 81 mg Documented by: Atorvastatin Calcium (Lipitor) 10 mg PO DAILY [facility] Stop: 11/06/19 09:01 Last Admin: 05/07/19 08:39 Dose: 10 mg Documented by: Sodium Chloride (0.9 % Sodium Chloride) 1,000 mls @ 75 mls/hr IVC .[id number] [facility] Stop: 11/05/19 17:16 Last Admin: 05/06/19 20:27 Dose: 75 mls/hr Documented by: Losartan Potassium (Cozaar) 25 mg PO HS [facility]; Protocol Stop: 11/05/19 21:01 Last Admin: 05/06/19 20:22 Dose: Not Given Documented by: Naloxone HCl (Narcan) 0.4 mg IVP Q2MPRN PRN PRN Reason: SEE COMMENTS Stop: 11/05/19 16:42 Nitroglycerin (Nitroglycerin) 0.4 mg SL Q5M PRN PRN Reason: Chest Pain Stop: 11/05/19 16:45 Tamsulosin HCl (Flomax) 0.4 mg PO DAILY [facility]; Protocol Stop: 11/06/19 09:01 Last Admin: 05/07/19 08:39 Dose: 0.4 mg Documented by: - Imaging and Cardiology Stress Test: report reviewed Echo: report reviewed - EKG Interpretation EKG results cardiology: personally reviewed (SR, early repolarization), other ( 12 hr tele AVG HR 60) Consult Discharge Plan - Plan Instructions: Chest Pain (DC) Additional Instructions: Please call your leasing professional to schedule follow up appointment. Referrals: Nirali Ortiz DO [Primary Care Provider] - 05/10/19 2:00 pm <Nhi Jacobs - Last Filed: 05/07/19 16:21> Date of Encounter: 05/07/19 - Attending Attestation I examined this patient and my medical decision-making was reviewed with the MEDICAL BILLER CODER. I agree with the documented findings, disposition and treatment plan as described. Mr. Alexandra presents with atypical chest pain that he has difficulty characterizing - sometimes associated with exertion but not always. Serial troponin negative. No acute ECG changes. Stress testing negative for ischemia or infarct. Normal Gated EF. Expressed concern to patient about his symptoms in setting of known CAD which he describes are sometimes associated with exertion. He also expressed a decrease in his exercise activity. Despite normal stress testing, gave patient the o ption of considering LHC. He would like to follow up with Dr. Subramanian to discuss. For now, continue medical management. Patient advised to call 911 and seek emergent medical care if chest pain becomes severe/persistent. Patient expressed understanding. Will sign off. Assessment and Plan Discussion w patient/family: The assessment and plan as outlined above was discussed with the patient and/or family members who expressed understanding and agreement. All questions were answered. Thank you for involving us in the care of your patient. Please call with any questions. History of Present Illness History of present illness: Mr. Alexandra is a 84 year old male All Systems Review: The remainder of the systems were reviewed and are negative Physical Examination Vital Signs, Last 4 Hours Temp Pulse Resp BP Pulse Ox 05/07/19 12:35 98.1 F 66 15 170/22 94 Results 05/07/19 06:48 05/07/19 06:48 Lab Results 05/06/19 05/06/19 05/06/19 18:24 18:24 22:44 WBC Hgb Hct Plt Count D-Dimer 329 Sodium Potassium Chloride Carbon Dioxide BUN Creatinine Glucose Calcium Magnesium Total Bilirubin AST ALT Alkaline Phosphatase Troponin I < 0.03 < 0.03 05/07/19 05/07/19 05/07/19 06:48 06:48 06:48 WBC 5.1 Hgb 14.2 Hct 41.7 Plt Count 125 L D-Dimer Sodium 143 Potassium 3.8 Chloride 107 Carbon Dioxide 27 BUN 16 Creatinine 1.07 Glucose 94 Calcium 8.9 Magnesium 1.9 Total Bilirubin 1.1 H AST 15 ALT 14 Alkaline Phosphatase 65 Troponin I < 0.03
[2019-05-07] MEDS ORDERED: Perflutren Lipid Microsphere 1.3 ML in 0.9 % Sodium Chloride 8.7 ML IVP ONE (10:23)
[2019-05-07] MEDS ORDERED: Perflutren Lipid Microsphere 2 ML VIAL ONE (10:25)
[2019-05-07 12:36] VITALS: BP 170/22
--- NOTE | 2019-05-07 13:32 | Discharge Summary ---
Date of Encounter: 05/07/19 Time of Encounter: 13:30 - Discharge Diagnosis (1) Chest pain Priority: Primary Status: Acute Qualifiers: Chest pain type: unspecified Qualified Code(s): R07.9 - Chest pain, unspecified (2) HTN (hypertension) Priority: Secondary Status: Chronic Qualifiers: Hypertension type: unspecified Qualified Code(s): I10 - Essential (primary) hypertension Hospital course: Mr. Alexandra is a 84 year old male with history of chronic artery disease status post CABG history of hypertension and hyperlipidemia was admitted because of left-sided chest pain to rule out acute coronary syndrome, troponin 3 sets negative personal clothing laundry aide consulted for comment nuclear stress test which came negative without evidence of reversible myocardial ischemia, echocardiogram revealed normal ejection fraction. Patient cleared by personal clothing laundry aide to be discharged home follow up with the personal clothing laundry aide as outpatient Patient at date of discharge feels well no chest pain no shortness of breath hematemesis stable. Continue on aspirin and statin and other cardioprotective medications - Time Spent with Patient Total time spent providing and/or coordinating discharge services: 31 min - Discharge Medications Prescriptions: Continued Atorvastatin [Lipitor] 10 mg PO DAILY Tamsulosin [Flomax] 0.4 mg PO DAILY Nitroglycerin 0.4 mg SL Q5M PRN PRN Reason: Chest Pain Losartan [Cozaar] 50 mg PO HS Aspirin [Lo-Dose Aspirin EC] 81 mg PO DAILY Multivitamin [One Daily Essential] 1 tab PO DAILY Fish Oil/Dha/Epa [Fish Oil 1,200 mg Fish Oil] 1 cap PO DAILY Vit D3/Folic Acid/B2/B6/B12 [Folgard Tablet] 1 each PO DAILY [place]-3/Dha/Epa/Fish Oil [[place] 3 500 Softgel] 1 each PO DAILY Lysine HCl [l-Lysine] 1,000 mg PO DAILY Caffeine [No Doz] 200 mg PO DAILY Home Medications: Aspirin [Lo-Dose Aspirin EC] 81 mg PO DAILY 10/27/17 [History] Atorvastatin [Lipitor] 10 mg PO DAILY 10/27/17 [History] Fish Oil/Dha/Epa [Fish Oil 1,200 mg Fish Oil] 1 cap PO DAILY 10/27/17 [History] Losartan [Cozaar] 50 mg PO HS 10/27/17 [History] Multivitamin [One Daily Essential] 1 tab PO DAILY 10/27/17 [History] Nitroglycerin 0.4 mg SL Q5M PRN 10/27/17 [History] Tamsulosin [Flomax] 0.4 mg PO DAILY 10/27/17 [History] Caffeine [No Doz] 200 mg PO DAILY 05/06/19 [History] Lysine HCl [l-Lysine] 1,000 mg PO DAILY 05/06/19 [History] [place]-3/Dha/Epa/Fish Oil [[place] 3 500 Softgel] 1 each PO DAILY 05/06/19 [History] Vit D3/Folic Acid/B2/B6/B12 [Folgard Tablet] 1 each PO DAILY 05/06/19 [History] Allergies/Adverse Reactions: Allergy/AdvReac Type Severity Reaction Status Date / Time No Known Allergies Allergy Verified 10/27/17 12:40 Date of admission: 05/06/19 17:07 Primary care physician: Nirali Ortiz Consults: 05/06/19 16:45 Consult to Cardiology [CONS] Routine Comment: Consulting Provider: Cardiology [place] Reason for Consult: chest pain Call Completed: Yes 05/06/19 20:34 Consult to Environmental Research Scientist [CONS] Routine Reason for SW Consult: POA - Constitutional Vitals: Temp Pulse Resp BP Pulse Ox 98.1 F 66 15 170/22 94 05/07/19 12:35 05/07/19 12:35 05/07/19 12:35 05/07/19 12:35 05/07/19 12:35 Exam: Physical examination: Gen.: Patient is alert and oriented, not in respiratory distress or pain HEENT: perrla , EOMI, no thyroid gland enlargement, no neck mass, supple neck Heart: S1 and S2 mary, normal sinus rhythm, no cardiac murmur no gallop rhythm Chest: Air entry equal bilaterally, clear chest, no wheezing, crackles or crepitation Abdomen: Soft nontender nondistended positive bowel sounds, no organomegaly Extremities: No pitting edema, peripheral pulses palpable, no cyanosis tenderness Neuro: Able to move all 4 limbs - Patient Status Disposition: Home, Self-Care Condition: Fair - Discharge Instructions Instructions: Chest Pain (DC) Follow Up With: Nirali Ortiz DO [Primary Care Provider] - Forms: ED Satisfaction Letter
--- NOTE | 2019-05-07 16:26 | Electrocardiograph Report ---
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
--- NOTE | 2019-05-07 16:47 | Electrocardiograph Report ---
[place] [id number] Test Date: 2019-05-07 Pat Name: Reynaldo Alexandra Department: 113 Room: 3B46 Gender: M Principal Technical Architect: Marco : 1935 Requested By: Aleksey Fritz Order Number: [id number] Reading MD: Riki Gibson Measurements Intervals [place] Rate: 58 P: 50 [place]: 201 QRS: 34 QRSD: 91 T: 68 QT: 422 QTc: 418 Interpretive Statements SINUS BRADYCARDIA POSSIBLE INFERIOR MYOCARDIAL INFARCTION, OF INDETERMINATE AGE Electronically Signed On 05-07-2019 16:45:30 EDT by Riki Gibson
== END 2019-05-07 14:47 | disposition home or self-care (01) ==
LOC: EMEROOARM 13:59 → 3BNU 13:59
PROVIDERS: ADMIT Internal Medicine Nephrology; ATTEND Internal Medicine Nephrology